=== PATIENT | female | born 1955 | race Caucasian/White ===

== ENCOUNTER 2023-04-09 08:21 | Emergency (ER) | payer OTHER ==
[~2023-04-09] VITALS: Ht 167.6 cm; Wt 68.2 kg
[2023-04-09] MEDS ORDERED: amox tr/potassium clavulanate 875/125mg TAB PO ONE (11:05)
[2023-04-09] MEDS ORDERED: LIDOcaine 1% 30ml preserv. free vial IJ ONE (11:05)
[2023-04-09] MEDS ORDERED: TETanus/Pertussis (Acell)/Diphther VAC/PF (Tdap-Adult) 0.5ml syringe IMVAC ONE (11:05)
[2023-04-09] MEDS ORDERED: HYDROcodone/acetaminophen 10/325mg tab PO ONE (11:05)
[2023-04-09] MEDS ORDERED: AMOX-580 PO (13:17)
[2023-04-09] MEDS ORDERED: NAPR-56 PO (13:17)
--- NOTE | 2023-04-09 13:19 | NUR ---
ANIMAL CONTROL FORM FAXED.
[2023-04-09 13:46] VITALS: BP 121/70; PULSE 70; RESP 18; TEMP 98.5; O2SAT 98
== END 2023-04-09 13:47 | disposition home or self-care (01) ==
LOC: ER 08:22
DX: S61.253A Open bite of left middle finger without damage to nail, initial encounter (principal); S61.255A Open bite of left ring finger without damage to nail, initial encounter; S61.251A Open bite of left index finger without damage to nail, initial encounter; Z79.2 Long term (current) use of antibiotics; Z79.899 Other long term (current) drug therapy; W54.0XXA Bitten by dog, initial encounter; Y93.89 Activity, other specified; Y92.89 Other specified places as the place of occurrence of the external cause; Y99.8 Other external cause status
CPT/HCPCS: 73140; 90471; 90715; 99284; A6449